=== PATIENT | female | born 1975 | race Caucasian/White ===

== ENCOUNTER 2017-08-31 09:21 | Emergency (ER) | payer OTHER ==
[2017-08-31 09:29] VITALS: BMI 25.7
--- NOTE | 2017-08-31 09:44 | PDOC ---
History of Present Illness - General History Source: Patient Exam Limitations: No Limitations - History of Present Illness Initial Comments: 08/31/17 10:56 The patient is a 41 year old female, with a significant past medical history of Kidney stones, Endometriosis who presents to the emergency department with R flank pain and dysuria for the past 4 days. Patient initially reports dysuria and vaginal itching for which she was treated with Monistat. Patient denies any relief of her symptoms. Since then, patient has been developing R flank pain with associated nausea but no vomiting. Patient states her pain is not similar to her Kidney stones. She denies chest pain, headache or dizziness. She denies fever, chills, abdominal pain, vomit, diarrhea or constipation. She denies frequency, urgency or hematuria. Allergies: NKA Past surgical history: tubal ligation, cytology, kidney stone, cone biopsy, ectopic Social history: None PCP: None <Henna Madrigal - Last Filed: 08/31/17 10:56> <Nevin Solorio - Last Filed: 08/31/17 15:16> - General Chief Complaint: Pain, Acute Stated Complaint: flank pain, hx of kidney stones Time Seen by Provider: 08/31/17 09:44 Past History <Henna Madrigal - Last Filed: 08/31/17 10:56> - Past Medical History Anemia: No Asthma: No Cancer: No Cardiac Disorders: No CVA: No COPD: No CHF: No Dementia: No Diabetes: Yes (hypoglycemic) GI Disorders: No Disorders: No HTN: No Hypercholesterolemia: No Liver Disease: No Seizures: No Thyroid Disease: No Other medical history: endomitriosis - Surgical History Abdominal Surgery: Yes (ectopic ) Appendectomy: No Cardiac Surgery: No Cholecystectomy: No Lung Surgery: No Neurologic Surgery: No Orthopedic Surgery: No - Suicide/Smoking/Psychosocial Hx Smoking History: Never smoked Have you smoked in the past 12 months: No Hx Alcohol Use: No Drug/Substance Use Hx: No Substance Use Type: None Hx Substance Use Treatment: No <Nevin Solorio - Last Filed: 08/31/17 15:16> - Past Medical History Allergies/Adverse Reactions: Allergies Allergy/AdvReac Type Severity Reaction Status Date / Time No Known Allergies Allergy Verified 08/31/17 09:28 Home Medications: Ambulatory Orders Benzocaine/Resorcinol [Vaginal Itch Cream] 30 gm TP PRN PRN 08/31/17 Review of Systems - Review of Systems Able to Perform ROS?: Yes Comments:: 08/31/17 10:57 GENERAL/CONSTITUTIONAL: No fever or chills. No weakness. HEAD, EYES, EARS, NOSE AND THROAT: No change in vision. No ear pain or discharge. No sore throat. CARDIOVASCULAR: No chest pain or shortness of breath. RESPIRATORY: No cough, wheezing, or hemoptysis. GASTROINTESTINAL: + R flank pain, nausea. No vomiting, diarrhea or constipation. GENITOURINARY: +dysuria. No frequency, or change in urination. MUSCULOSKELETAL: No joint or muscle swelling or pain. No neck or back pain. SKIN: No rash NEUROLOGIC: No headache, vertigo, loss of consciousness, or change in strength/ sensation. ENDOCRINE: No increased thirst. No abnormal weight change. HEMATOLOGIC/LYMPHATIC: No anemia, easy bleeding, or history of blood clots. ALLERGIC/IMMUNOLOGIC: No hives or skin allergy. <Henna Madrigal - Last Filed: 08/31/17 10:56> *Physical Exam - Vital Signs Last Vital Signs Temp Pulse Resp BP Pulse Ox 98.2 F 115 H 19 160/90 95 08/31/17 09:27 08/31/17 09:27 08/31/17 09:27 08/31/17 09:27 08/31/17 09:27 - Physical Exam Comments: 08/31/17 10:57 GENERAL: Awake, alert, and fully oriented, in no acute distress HEAD: No signs of trauma EYES: PERRLA, EOMI, sclera anicteric, conjunctiva clear ENT: Auricles normal inspection, hearing grossly normal, nares patent, oropharynx clear without exudates. Moist mucosa NECK: Normal ROM, supple, no lymphadenopathy, JVD, or masses LUNGS: Breath sounds equal, clear to auscultation bilaterally. No wheezes, and no crackles HEART: Regular rate and rhythm, normal S1 and S2, no murmurs, rubs or gallops ABDOMEN: +R CVA tenderness. Soft, nontender, normoactive bowel sounds. No guarding, no rebound. No masses EXTREMITIES: Normal range of motion, no edema. No clubbing or cyanosis. No cords, erythema, or tenderness NEUROLOGICAL: Cranial nerves II through XII grossly intact. Normal speech, normal gait SKIN: Warm, Dry, normal turgor, no rashes or lesions noted. <Henna Madrigal - Last Filed: 08/31/17 10:56> - Vital Signs Last Vital Signs Temp Pulse Resp BP Pulse Ox 98.2 F 115 H 19 160/90 95 08/31/17 09:27 08/31/17 09:27 08/31/17 09:27 08/31/17 09:27 08/31/17 09:27 <Nevin Solorio - Last Filed: 08/31/17 15:16> ED Treatment Course - LABORATORY CBC & Chemistry Diagram: 08/31/17 09:50 08/31/17 09:50 - ADDITIONAL ORDERS Additional order review: Laboratory Results 08/31/17 09:50 Urine Color Straw Urine Appearance Clear Urine pH 7.0 Urine Protein Negative Urine Glucose (UA) Negative Urine Ketones Negative Urine Blood 1+ H Urine Nitrite Negative Urine Bilirubin Negative Urine Urobilinogen Negative Urine HCG, Qual Negative 08/31/17 09:50 RBC 5.32 H MCV 84.3 MCHC 33.0 RDW 13.9 MPV 10.1 Neutrophils % 55.8 Lymphocytes % 35.8 Monocytes % 6.5 Eosinophils % 1.3 Basophils % 0.6 - Medications Given in the ED: ED Medications Discontinued Medications Generic Name Dose Route Start Last Admin Trade Name Slim PRN Reason Stop Dose Admin Acetaminophen 975 mg 08/31/17 10:07 08/31/17 10:13 Tylenol - PO 08/31/17 10:08 975 mg ONCE ONE Administration Ketorolac Tromethamine 30 mg 08/31/17 10:07 08/31/17 10:33 Toradol Injection - IVPUSH 08/31/17 10:08 30 mg ONCE ONE Administration Ondansetron HCl 4 mg 08/31/17 10:07 08/31/17 10:13 Zofran Injection IVPUSH 08/31/17 10:08 4 mg ONCE ONE Administration Sodium Chloride 1,000 ml 08/31/17 10:07 08/31/17 10:13 Normal Saline - IV 08/31/17 10:08 1,000 ml ONCE ONE Administration <Henna Madrigal - Last Filed: 08/31/17 10:56> - LABORATORY CBC & Chemistry Diagram: 08/31/17 09:50 08/31/17 11:10 <Nevin Solorio - Last Filed: 08/31/17 15:16> Medical Decision Making - Medical Decision Making 08/31/17 11:29 41yo female with R flank pain, hx of kidney stones, but also c/o vaginal pain -labs -ua -pelvic exam -pain control -reassess 08/31/17 15:11 pelvic exam showed a yeast infection - will give fluconazole. pt will follow upwith her [facility] 08/31/17 15:13 re-eval: discussed imaging results with the patient. pt stable for d/c to home. pt will follow up with her PMD and with her [facility]. Pt understands all reasons to return to the ED and need for follow up <Nevin Solorio - Last Filed: 08/31/17 15:16> *DC/Admit/Observation/Transfer - Attestations Scribe Attestion: 08/31/17 10:58 Documentation prepared by Henna Madrigal, acting as medical delivery driver for Nevin Solorio DO <Henna Madrigal - Last Filed: 08/31/17 10:56> - Discharge Dispostion Admit: No - Attestations Physician Attestion: 08/31/17 15:15 I, Dr. Nevin Solorio DO, attest that this document has been prepared under my direction and personally reviewed by me in its entirety. I further attest, that it accurately reflects all work, treatment, procedures and medical decision -making performed by me. <Nevin Solorio - Last Filed: 08/31/17 15:16> Diagnosis at time of Disposition: Hematuria, Flank pain, Yeast infection involving the vagina and surrounding area - Discharge Dispostion Disposition: HOME Condition at time of disposition: Stable - Referrals Referrals: Carlos Martinez [Primary Care Provider] - Beny Vásquez MD [Staff Physician] - - Patient Instructions Printed Discharge Instructions: Blood in Urine, DI for Flank Pain, DI for Vaginal Yeast Infection Additional Instructions: Please follow up with both your [facility] and your PMD. Please return to the ED with any further concerns.
[2017-08-31] MEDS ORDERED: SODIUM CHLORIDE 0.9% 1000 ML INFUS.BAG IV ONE (10:07)
[2017-08-31] MEDS ORDERED: ONDANSETRON 4 MG/2 ML VIAL IVPUSH ONE (10:07)
[2017-08-31] MEDS ORDERED: ACETAMINOPHEN 325 MG TABLET (FP) PO ONE ×2 (10:07→15:11)
[2017-08-31] MEDS ORDERED: KETOROLAC TROMETHAMINE 30 MG/1 ML VIAL IVPUSH ONE (10:07)
[2017-08-31] MEDS ORDERED: ACETAMINOPHEN 325 MG TABLET (FP) ONE ×2 (10:14→15:25)
[2017-08-31] MEDS ORDERED: ONDANSETRON 4 MG/2 ML VIAL ONE (10:14)
[2017-08-31 10:20] LABS: URINE APPEARANCE CLEAR; URINE BILIRUBIN NEGATIVE (NEGATIVE); URINE BLOOD 1+ (NEGATIVE); URINE COLOR STRAW; URINE GLUCOSE (UA) NEGATIVE (NEGATIVE); URINE KETONE NEGATIVE (NEGATIVE); URINE LEUK ESTERASE NEGATIVE (NEGATIVE); URINE NITRITE NEGATIVE (NEGATIVE); URINE PROTEIN NEGATIVE (NEGATIVE); URINE UROBILINOGEN NEGATIVE mg/dL (0.2-1.0)
[2017-08-31 10:23] LABS: BASOPHIL 0.6 % (0-2.0); EOSINOPHIL 1.3 % (0-4.5); MCH 27.8 pg (25.7-33.7); MEAN CELL VOLUME 84.3 fl (80-96); MEAN PLT VOLUME 10.1 fl (7.5-11.1); NEUTROPHILS 55.8 % (42.8-82.8); PLATELET COUNT 188 K/MM3 (134-434); RDW 13.9 % (11.6-15.6); WHITE BLOOD COUNT 9.7 K/mm3 (4.0-10.0)
[2017-08-31] MEDS ORDERED: KETOROLAC TROMETHAMINE 30 MG/1 ML VIAL ONE (10:33)
[2017-08-31 10:59] LABS: URINE BACTERIA RARE /hpf (NONE SEEN); URINE RBC 4 /hpf (0-3); URINE WBC 2 /hpf (3-5)
[2017-08-31 11:53] LABS: ALBUMIN 3.4 g/dl (3.4-5.0); ANION GAP 5 (8-16); BILIRUBIN,TOTAL 0.6 mg/dL (0.2-1.0); CALCIUM 8.4 mg/dL (8.5-10.1); CO2 28 mmol/L (21-32); CREATININE 0.8 mg/dL (0.55-1.02); GLUCOSE,RANDOM 79 mg/dL (74-106); SGOT/AST 13 U/L (15-37); SGPT/ALT 17 U/L (12-78); TOT PROT 6.5 g/dl (6.4-8.2)
[2017-08-31 11:54] LABS: ALK PHOS 43 U/L (45-117)
[2017-08-31] MEDS ORDERED: FLUCONAZOLE 50 MG TABLET PO ONE (12:33)
[2017-08-31] MEDS ORDERED: FLUCONAZOLE 100 MG TABLET (UD) ONE (15:05)
[2017-08-31 15:32] VITALS: BP 110/70; PULSE 78; TEMP 98
== END 2017-08-31 15:30 | disposition home or self-care (01) ==
LOC: JER 09:21
DX: B37.3 Candidiasis of vulva and vagina (principal); L29.2 Pruritus vulvae
CPT/HCPCS: 36415; 74176-TC; 80053; 81003; 81015; 84703; 85025; 99283-25

== ENCOUNTER 2017-09-04 19:03 | Inpatient (IN) | payer OTHER ==
--- NOTE | 2017-09-04 20:10 | PDOC ---
History of Present Illness - General History Source: Patient, Family Exam Limitations: No Limitations - History of Present Illness Initial Comments: 09/04/17 20:23 41 y/o F (LMP: August 11) with a PMHx of recent UTI presents to the ED with severe lower back pain for 2 days. Patient went to PCP for the pain who told her the pain is caused by her sciatic nerve. PCP gave her muscle relaxants and Tramadol. Patient reports nausea and vomiting from the medication. She states the pain worsened from lifting a box of water. She reports associated bilateral lower extremity numbness. Denies loss of bowel control. Denies fever, chills. Denies diarrhea, constipation. Denies chest pain, SOB. <Silvia Blair - Last Filed: 09/04/17 20:23> <Nevin Solorio - Last Filed: 09/04/17 23:13> - General Chief Complaint: Back Pain Stated Complaint: PAIN, ACUTE Time Seen by Provider: 09/04/17 19:50 Past History <Silvia Blair - Last Filed: 09/04/17 20:23> - Past Medical History Anemia: No Asthma: No Cancer: No Cardiac Disorders: No CVA: No COPD: No CHF: No Dementia: No Diabetes: Yes (hypoglycemic) GI Disorders: No Disorders: No HTN: No Hypercholesterolemia: No Kidney Stones: Yes Liver Disease: No Seizures: No Thyroid Disease: No Other medical history: endometriosis - Surgical History Abdominal Surgery: Yes (ectopic ) Appendectomy: No Cardiac Surgery: No Cholecystectomy: No Lung Surgery: No Neurologic Surgery: No Orthopedic Surgery: No - Suicide/Smoking/Psychosocial Hx Smoking History: Never smoked Have you smoked in the past 12 months: No Information on smoking cessation initiated: No Hx Alcohol Use: No Drug/Substance Use Hx: No Substance Use Type: None Hx Substance Use Treatment: No <Nevin Solorio - Last Filed: 09/04/17 23:13> - Past Medical History Allergies/Adverse Reactions: Allergies Allergy/AdvReac Type Severity Reaction Status Date / Time No Known Allergies Allergy Verified 08/31/17 09:28 Home Medications: Ambulatory Orders Benzocaine/Resorcinol [Vaginal Itch Cream] 30 gm TP PRN PRN 08/31/17 Review of Systems - Review of Systems Able to Perform ROS?: Yes Comments:: 09/04/17 20:23 GENERAL/CONSTITUTIONAL: No fever or chills. No weakness. HEAD, EYES, EARS, NOSE AND THROAT: No change in vision. No ear pain or discharge. No sore throat. CARDIOVASCULAR: No chest pain or shortness of breath. RESPIRATORY: No cough, wheezing, or hemoptysis. GASTROINTESTINAL: (+) nausea, vomiting, No diarrhea or constipation. GENITOURINARY: No dysuria, frequency, or change in urination. MUSCULOSKELETAL: (+) lower back pain. No joint or muscle swelling or pain. No neck pain. SKIN: No rash NEUROLOGIC: (+) bilateral lower extremity numbness. No headache, vertigo, loss of consciousness, or change in strength. ENDOCRINE: No increased thirst. No abnormal weight change. HEMATOLOGIC/LYMPHATIC: No anemia, easy bleeding, or history of blood clots. ALLERGIC/IMMUNOLOGIC: No hives or skin allergy. <Silvia Blair - Last Filed: 09/04/17 20:23> *Physical Exam - Vital Signs Last Vital Signs Temp Pulse Resp BP Pulse Ox 98.2 F 74 18 134/75 100 09/04/17 19:09 09/04/17 19:09 09/04/17 19:09 09/04/17 19:09 09/04/17 19:09 - Physical Exam Comments: 09/04/17 20:23 GENERAL: Awake, alert, and fully oriented, appears to be in distress. HEAD: No signs of trauma EYES: PERRLA, EOMI, sclera anicteric, conjunctiva clear ENT: Auricles normal inspection, hearing grossly normal, nares patent, oropharynx clear without exudates. Moist mucosa NECK: Normal ROM, supple, no lymphadenopathy, JVD, or masses LUNGS: Breath sounds equal, clear to auscultation bilaterally. No wheezes, and no crackles HEART: Regular rate and rhythm, normal S1 and S2, no murmurs, rubs or gallops ABDOMEN: Soft, nontender, normoactive bowel sounds. No guarding, no rebound. No masses EXTREMITIES: Normal range of motion, no edema. No clubbing or cyanosis. No cords, erythema, or tenderness NEUROLOGICAL: Midline tenderness at L spine. Sensation is intact. Strength is intact. Limited ROM secondary to pain. Positive straight leg test to bilateral lower extremities. No signs of cauda equina. Cranial nerves II through XII grossly intact. Normal speech. SKIN: Warm, Dry, normal turgor, no rashes or lesions noted. <Silvia Blair - Last Filed: 09/04/17 20:23> - Vital Signs Last Vital Signs Temp Pulse Resp BP Pulse Ox 98.2 F 74 18 134/75 100 09/04/17 19:09 09/04/17 19:09 09/04/17 19:09 09/04/17 19:09 09/04/17 19:09 <Nevin Solorio - Last Filed: 09/04/17 23:13> ED Treatment Course - LABORATORY CBC & Chemistry Diagram: 09/04/17 20:30 09/04/17 20:30 <Nevin Solorio - Last Filed: 09/04/17 23:13> Medical Decision Making - Medical Decision Making 09/04/17 21:47 41yo female with low back pain - dx with sciatica by PMD, worsening pain -no signs symptoms of caude equina -suspect poss herniated disc that she worsened when she lifted a case of water -will check labs, ct lumbar spine with midline ttp -pain control, reassess 09/04/17 22:28 pt with ISABELA on labs, discussed with [facility] Gaitan resident, who accepts pt to obs under Dr. Welch. pt updated on labs. Pt willing to stay for further eval. pain much more controlled at this time. pt resting comfortably. sits up easily in bed with ease. FROM of LE, sensation intact, muscle strength intact. 09/04/17 23:[address] Josh Nath as outpt. Case discussed with DR. Hendricks who accepts pt to service. 09/04/17 23:12 lumbar spine with herniated discs L3-4 and L4-5 without gross nerve impingement. <Nevin Solorio - Last Filed: 09/04/17 23:13> *DC/Admit/Observation/Transfer - Attestations Scribe Attestion: 09/04/17 20:24 Documentation prepared by Silvia Blair, acting as bacteriologist medical for Nevin Solorio DO. <Silvia Blair - Last Filed: 09/04/17 20:23> - Discharge Dispostion Admit: Yes - Attestations Physician Attestion: 09/04/17 22:30 I, Dr. Nevin Solorio, DO, attest that this document has been prepared under my direction and personally reviewed by me in its entirety. I further attest, that it accurately reflects all work, treatment, procedures and medical decision -making performed by me. <Nevin Solorio - Last Filed: 09/04/17 23:13> Diagnosis at time of Disposition: ISABELA (acute kidney injury), Herniation of intervertebral disc - Discharge Dispostion Condition at time of disposition: Stable - Referrals Referrals: STAFF,NOT ON [Primary Care Provider] -
[2017-09-04] MEDS ORDERED: oxyCODONE HCL 5 MG TABLET PO ONE (20:11)
[2017-09-04] MEDS ORDERED: KETOROLAC TROMETHAMINE 30 MG/1 ML VIAL IVPUSH ONE (20:11)
[2017-09-04] MEDS ORDERED: SODIUM CHLORIDE 0.9% 1000 ML INFUS.BAG IV ONE ×2 (20:11→22:20)
[2017-09-04] MEDS ORDERED: ONDANSETRON 4 MG/2 ML VIAL IVPUSH ONE (20:12)
[2017-09-04] MEDS ORDERED: KETOROLAC TROMETHAMINE 30 MG/1 ML VIAL ONE (20:26)
[2017-09-04] MEDS ORDERED: ONDANSETRON 4 MG/2 ML VIAL ONE (20:27)
[2017-09-04 20:52] LABS: BASOPHIL 0.7 % (0-2.0); EOSINOPHIL 0.3 % (0-4.5); MCH 28.2 pg (25.7-33.7); MCHC 33.3 g/dl (32.0-36.0); MEAN CELL VOLUME 84.7 fl (80-96); MEAN PLT VOLUME 10.4 fl (7.5-11.1); NEUTROPHILS 75.7 % (42.8-82.8); PLATELET COUNT 188 K/MM3 (134-434); RDW 14.1 % (11.6-15.6); WHITE BLOOD COUNT 13.9 K/mm3 (4.0-10.0)
[2017-09-04 21:28] LABS: ALBUMIN 3.9 g/dl (3.4-5.0); ALK PHOS 52 U/L (45-117); ANION GAP 7 (8-16); BILIRUBIN,TOTAL 0.6 mg/dL (0.2-1.0); CALCIUM 8.6 mg/dL (8.5-10.1); CO2 30 mmol/L (21-32); CREATININE 1.9 mg/dL (0.55-1.02); GLUCOSE,RANDOM 86 mg/dL (74-106); SGPT/ALT 16 U/L (12-78); TOT PROT 7.2 g/dl (6.4-8.2)
[2017-09-04 21:33] LABS: SGOT/AST 16 U/L (15-37)
[2017-09-04] MEDS ORDERED: oxyCODONE HCL 5 MG TABLET ONE (21:59)
[2017-09-05] MEDS ORDERED: DEXTROSE 5%-0.45% SALINE 1,000 ML IV SCH (03:15)
[2017-09-05 09:06] VITALS: BMI 25.7
[2017-09-05 09:44] LABS: URINE LEUK ESTERASE Negative (NEGATIVE)
[2017-09-05] MEDS ORDERED: KETOROLAC TROMETHAMINE 30 MG/1 ML VIAL IVPUSH SCH (10:00)
--- NOTE | 2017-09-05 15:17 | CONSULT ---
Consult Consult Specialty:: Nephrology Reason for Consultation:: ISABELA - History of Present Illness Chief Complaint: back pain History of Present Illness: Pt is a 41 year old female with pmhx of UTI and nephrolithiasis who presents to the ER with back pain. She says she has had is for several weeks but it has intensified over the last few days. She also complains of nausea and vomiting. She says she is on cipro for a UTI. She denies fevers or chills. She is awake and alert. I was called to evaluate her for ISABELA as she was found to have elevated creatinine. She denies history of CKD. She denies nsaid use. - History Source History Provided By: Patient - Past Medical History Renal/: Yes: Renal Calculi ...LMP: 11/21/11 Infectious Disease: Yes: Other (uti) - Alcohol/Substance Use Hx Alcohol Use: No - Smoking History Smoking history: Never smoked Have you smoked in the past 12 months: No Home Medications - Allergies Allergies/Adverse Reactions: Allergies Allergy/AdvReac Type Severity Reaction Status Date / Time No Known Allergies Allergy Verified 08/31/17 09:28 - Home Medications Home Medications: Ambulatory Orders Benzocaine/Resorcinol [Vaginal Itch Cream] 30 gm TP PRN PRN 08/31/17 Family Disease History - Family Disease History Family History: Denies Review of Systems - Review of Systems Constitutional: reports: Malaise Eyes: reports: No Symptoms HENT: reports: No Symptoms Neck: reports: No Symptoms Cardiovascular: reports: No Symptoms Respiratory: reports: No Symptoms Gastrointestinal: reports: No Symptoms Genitourinary: reports: No Symptoms Musculoskeletal: reports: Other (back pain) Neurological: reports: No Symptoms Endocrine: reports: No Symptoms Hematology/Lymphatic: reports: No Symptoms Physical Exam Vital Signs: Vital Signs Temperature 97.9 F 09/05/17 09:45 Pulse Rate 74 09/05/17 09:45 Respiratory Rate 18 09/05/17 09:45 Blood Pressure 107/67 09/05/17 09:45 O2 Sat by Pulse Oximetry (%) 98 09/05/17 06:57 Constitutional: Yes: Calm Eyes: Yes: Conjunctiva Clear HENT: Yes: Atraumatic Neck: Yes: Supple Cardiovascular: Yes: S1, S2 Respiratory: Yes: CTA Bilaterally Gastrointestinal: Yes: Soft Renal/: Yes: WNL Musculoskeletal: Yes: Back Pain Edema: No Neurological: Yes: Oriented Psychiatric: Yes: Oriented Labs: Laboratory Tests 12/27/11 08/31/17 09/04/17 13:00 11:10 20:30 Hgb Sodium 138 Potassium 3.8 Chloride 101 Carbon Dioxide 30 Anion Gap 7 L Creatinine 1.0 0.8 1.9 H D BUN 18 D Urine Color Urine Appearance Urine pH Urine Protein Urine Glucose (UA) Urine Ketones Urine Blood Urine Nitrite 09/04/17 09/04/17 20:30 23:00 Hgb 13.4 Sodium Potassium Chloride Carbon Dioxide Anion Gap Creatinine BUN Urine Color Pending Urine Appearance Pending Urine pH Pending Urine Protein Pending Urine Glucose (UA) Pending Urine Ketones Pending Urine Blood Pending Urine Nitrite Pending Imaging - Results Ultrasound: Report Reviewed Problem List - Problems (1) ISABELA (acute kidney injury) Code(s): N17.9 - ACUTE KIDNEY FAILURE, UNSPECIFIED (2) Back pain Code(s): M54.9 - DORSALGIA, UNSPECIFIED Assessment/Plan Current Medications Generic Name Dose Route Start Last Admin Trade Name Freq PRN Reason Stop Dose Admin Dextrose/Sodium Chloride 1,000 mls @ 75 mls/hr 09/05/17 03:15 09/05/17 04:52 D5-1/2ns - IV 75 mls/hr ASDIR NINA Administration Ketorolac Tromethamine 30 mg 09/05/17 10:00 09/05/17 11:15 Toradol Injection - IVPUSH 09/10/17 09:59 30 mg Q8H-IV NINA Administration Impression 1. ISABELA 2. back pain 3. hx of UTI Plan - stop toradol - change fluids to 1/2ns - repeat labs in am - check ua, electrolytes and creatinine - will follow Dr Mcguire
[2017-09-05] MEDS ORDERED: SODIUM CHLORIDE 0.45% 1,000 ML IV SCH (15:30)
[2017-09-05 17:27] LABS: URINE APPEARANCE CLEAR; URINE BILIRUBIN NEGATIVE (NEGATIVE); URINE BLOOD 1+ (NEGATIVE); URINE COLOR STRAW; URINE GLUCOSE (UA) NEGATIVE (NEGATIVE); URINE KETONE NEGATIVE (NEGATIVE); URINE NITRITE NEGATIVE (NEGATIVE); URINE PROTEIN NEGATIVE (NEGATIVE); URINE UROBILINOGEN NEGATIVE mg/dL (0.2-1.0)
[2017-09-05 17:47] LABS: ANION GAP 7 (8-16); CALCIUM 8.1 mg/dL (8.5-10.1); CO2 29 mmol/L (21-32); CREATININE 1.5 mg/dL (0.55-1.02); GLUCOSE,RANDOM 83 mg/dL (74-106)
--- NOTE | 2017-09-05 18:15 | HP ---
Admitting History and Physical - Admission History of Present Illness: Pt is a 41 y/o female with PMH significant for endometriosis and nephrolithiasis. Pt was seen in the ER on 08/31/[address] scan abd wc was unremarkable and was treated w/ diflucan for vaginosis. Pt also recently was dx' ed w/ UTI and was on cipro. Pt also has been treated for chronic back pain/ sciatica for the past few days. Pt had lifted a heavy box and developed lower back pain wc was also associated w/ tingling/parethesia down both legs. Pt has been on tramadol/flexeril for the back pain however she did develop nausea and vomiting wc she thought was from the new medications. She states the pain worsened after lifting a box of water. In the ER pt was found to have elevated creatinine of 2 and renal US was done wc was normal. - Past Medical History Renal/: Yes: Renal Calculi Reproductive: Yes: Ectopic , Endometriosis ...LMP: 11/21/11 Infectious Disease: Yes: Other (uti) - Past Surgical History Past Surgical History: Yes: Tubal Ligation Additional Past Surgical History: Ectopic - Smoking History Smoking history: Never smoked Have you smoked in the past 12 months: No - Alcohol/Substance Use Hx Alcohol Use: No Home Medications - Allergies Allergies/Adverse Reactions: Allergies Allergy/AdvReac Type Severity Reaction Status Date / Time No Known Allergies Allergy Verified 08/31/17 09:28 - Home Medications Home Medications: Ambulatory Orders Benzocaine/Resorcinol [Vaginal Itch Cream] 30 gm TP PRN PRN 08/31/17 Family Disease History - Family Disease History Family History: Unremarkable Review of Systems - Review of Systems Constitutional: reports: No Symptoms Eyes: reports: No Symptoms HENT: reports: No Symptoms Neck: reports: No Symptoms Cardiovascular: reports: No Symptoms Respiratory: reports: No Symptoms Gastrointestinal: reports: No Symptoms Genitourinary: reports: No Symptoms Physical Examination Vital Signs: Vital Signs Temperature 98.1 F 09/05/17 17:02 Pulse Rate 60 09/05/17 17:02 Respiratory Rate 20 09/05/17 17:02 Blood Pressure 98/54 09/05/17 17:02 O2 Sat by Pulse Oximetry (%) 98 09/05/17 06:57 Constitutional: Yes: Well Nourished Eyes: Yes: WNL HENT: Yes: WNL Neck: Yes: WNL, Supple Cardiovascular: Yes: WNL, Regular Rate and Rhythm Respiratory: Yes: WNL, Regular, CTA Bilaterally Gastrointestinal: Yes: WNL, Normal Bowel Sounds, Soft Musculoskeletal: Yes: WNL Extremities: Yes: WNL Edema: No Neurological: Yes: WNL, Alert, Oriented ...Motor Strength: WNL Labs: CBC, BMP 09/05/17 16:25 Problem List - Problems (1) ISABELA (acute kidney injury) Assessment/Plan: ?NSAID induced Cont IV hydration REnal consult Follow labs Code(s): N17.9 - ACUTE KIDNEY FAILURE, UNSPECIFIED (2) Back pain Assessment/Plan: CT scan LS spine showed 2 bulging discs Code(s): M54.9 - DORSALGIA, UNSPECIFIED
[2017-09-05 18:53] LABS: URINE BACTERIA FEW /hpf (NONE SEEN); URINE RBC 1 /hpf (0-3); URINE WBC 1 /hpf (3-5)
[2017-09-05 22:02] LABS: URINE LEUK ESTERASE Negative (NEGATIVE)
[2017-09-06] MEDS ORDERED: morphine CARPU-JECT 2 MG/1 ML DISP.SYRIN IVPUSH PRN (01:27)
[2017-09-06 07:31] LABS: BASOPHIL 0.5 % (0-2.0); EOSINOPHIL 0.9 % (0-4.5); MCH 27.8 pg (25.7-33.7); MCHC 32.6 g/dl (32.0-36.0); MEAN CELL VOLUME 85.2 fl (80-96); MEAN PLT VOLUME 11.1 fl (7.5-11.1); NEUTROPHILS 65.4 % (42.8-82.8); PLATELET COUNT 135 K/MM3 (134-434); RDW 14.1 % (11.6-15.6); WHITE BLOOD COUNT 8.6 K/mm3 (4.0-10.0)
[2017-09-06 08:05] LABS: ALBUMIN 3.2 g/dl (3.4-5.0); ALK PHOS 40 U/L (45-117); ANION GAP 7 (8-16); BILIRUBIN,TOTAL 0.4 mg/dL (0.2-1.0); CALCIUM 8.1 mg/dL (8.5-10.1); CO2 28 mmol/L (21-32); CREATININE 1.4 mg/dL (0.55-1.02); GLUCOSE,RANDOM 82 mg/dL (74-106); SGOT/AST 13 U/L (15-37); SGPT/ALT 15 U/L (12-78)
[2017-09-06] MEDS ORDERED: POLYETHYLENE GLYCOL 3350 119 GM BTL PO ONE (12:45)
--- NOTE | 2017-09-06 13:10 | PN ---
Progress Note, Physician History of Present Illness: Pt seen and examined at bedside. She is awake and alert. She denies flank pain. - Current Medication List Current Medications: Active Medications Sodium Chloride (1/2 Normal Saline) 1,000 mls @ 50 mls/hr IV ASDIR NINA Stop: 09/06/17 15:18 Last Admin: 09/05/17 16:31 Dose: 50 mls/hr Morphine Sulfate (Morphine Injection -) 2 mg IVPUSH Q6H PRN PRN Reason: PAIN Last Admin: 09/06/17 02:12 Dose: 2 mg - Objective Vital Signs: Vital Signs Temperature 98.1 F 09/06/17 10:00 Pulse Rate 63 09/06/17 10:00 Respiratory Rate 18 09/06/17 10:00 Blood Pressure 127/64 09/06/17 10:00 O2 Sat by Pulse Oximetry (%) 99 09/06/17 09:00 Constitutional: Yes: Calm Eyes: Yes: Conjunctiva Clear HENT: Yes: Atraumatic Cardiovascular: Yes: S1, S2 Respiratory: Yes: CTA Bilaterally Gastrointestinal: Yes: Soft Genitourinary: Yes: WNL Musculoskeletal: Yes: WNL Extremities: Yes: WNL Edema: No Neurological: Yes: Oriented Psychiatric: Yes: Oriented Labs: CBC, BMP 09/06/17 05:35 09/06/17 05:35 Problem List - Problems (1) ISABELA (acute kidney injury) Code(s): N17.9 - ACUTE KIDNEY FAILURE, UNSPECIFIED (2) Back pain Code(s): M54.9 - DORSALGIA, UNSPECIFIED Assessment/Plan Current Medications Generic Name Dose Route Start Last Admin Trade Name Freq PRN Reason Stop Dose Admin Sodium Chloride 1,000 mls @ 50 mls/hr 09/05/17 15:30 09/05/17 16:31 1/2 Normal Saline IV 09/06/17 15:18 50 mls/hr ASDIR NINA Administration Morphine Sulfate 2 mg 09/06/17 01:27 09/06/17 02:12 Morphine Injection - IVPUSH 2 mg Q6H PRN Administration PAIN Impression 1. ISABELA 2. back pain 3. hx of UTI 4. microscopic hematuria Plan - renal function is improved - will need further outpt workup, she agrees to come to office - reviewed UA - pt tolerated fluids - will follow Dr Mcguire
[2017-09-06 19:36] VITALS: BP 106/66; PULSE 66; TEMP 98.6
== END 2017-09-06 21:14 | disposition home or self-care (01) | DRG 460 ==
LOC: SUPCPDRO 19:03 → JER 19:03 → JERBED 23:09 → UNDOADMIN 09-05 00:01 → J8W 09-05 07:47
PROVIDERS: ADMIT Internal Medicine; ATTEND Internal Medicine
DX: N17.9 Acute kidney failure, unspecified (principal); M54.9 Dorsalgia, unspecified
CPT/HCPCS: 36415; 72131-TC; 76775-TC; 80048; 80053; 81003; 81015; 82436; 82570; 84133; 84300; 84703; 85025; 87086; 97116-GP; 97161-GP; 99284-25